=== PATIENT | male | born 1980 | race Two or more races ===

== ENCOUNTER 2020-07-15 18:21 | Inpatient (IN) | payer OTHER ==
[~2020-07-15] VITALS: Ht 175.3 cm; Wt 107.4 kg
--- NOTE | 2020-07-15 18:47 | NUR ---
PT AMBULATORY TO [facility] W/ STEADY GAIT.
--- NOTE | 2020-07-15 18:51 | NUR ---
RECEIVED REPORT FROM CLIFTON ELLINGTON. TRANSFER OF CARE.
[2020-07-15] MEDS ORDERED: SODIUM CHLORIDE FLUSH 10ML SYR IVF ONE (19:00)
[2020-07-15] MEDS ORDERED: SODIUM CHLORIDE 0.9% 1,000ML IVBOLUS ONE ×2 (19:00→20:30)
--- NOTE | 2020-07-15 19:11 | NUR ---
PT HAS CO CHILLS, FEVER, ABDOMINAL PAIN, DIARRHEA FOR 2 DAYS. TROUBLE URINATING PT IN BED AND IS ANXIOUS. BREATHING A LITTLE FAST. Bed in lowest, rails engaged, call light on lap. Vital Signs within normal limits. WCTM.
[2020-07-15 19:27] LABS: MEAN CORPUSCULAR HEMOGLOBIN 32.8 pg (27.5-34.5); MEAN CORPUSCULAR HGB CONC 35.4 g/dL (33.2-36.2); MEAN PLATELET VOLUME 8.9 fL (7.4-10.4); PLATELET COUNT 249 x10^3/uL (130-400); RED BLOOD COUNT 4.99 x10^6/uL (4.38-5.82); RED CELL DISTRIBUTION WIDTH 12.5 % (9.4-14.8)
[2020-07-15 19:34] LABS: ALANINE AMINOTRANSFERASE 78 U/L (12-78); ALBUMIN 4.1 g/dL (3.4-5.0); ANION GAP 11 mmol/L (5-15); CALCIUM 10.1 mg/dL (8.5-10.1); CHLORIDE 95 mmol/L (98-107); CREATININE 1.88 mg/dL (0.7-1.3)
[2020-07-15] MEDS ORDERED: ONDANSETRON 2MG/ML, 2ML ONE (19:36)
[2020-07-15 19:37] LABS: ALKALINE PHOSPHATASE 46 U/L (45-117); BILIRUBIN,TOTAL 0.9 mg/dL (0.2-1.0); TOTAL PROTEIN 9.7 g/dL (6.4-8.2)
[2020-07-15] MEDS ORDERED: MORPHINE SULFATE 4 MG/ML, 1ML ONE ×2 (19:37→22:01)
[2020-07-15] MEDS: MORPHINE SULFATE 4 MG/ML, 1ML IVPush PRN ×2 (19:40→22:02)
[2020-07-15] MEDS ORDERED: ACETAMINOPHEN 500 MG TABLET ONE (19:44)
[2020-07-15] MEDS ORDERED: ONDANSETRON 2MG/ML, 2ML IVPush ONE (20:00)
[2020-07-15] MEDS ORDERED: ACETAMINOPHEN 500 MG TABLET PO ONE (20:00)
--- NOTE | 2020-07-15 20:13 | NUR ---
PT RESTING IN BED. REPORTS FEELING A LOT BETTER. WENT TO BATHROOM WITH STEADY GAIT. WAS ABLE TO OBTAIN A URINE AND STOOL SAMPLE. ATTACHED TO MONITORS. VSS. BED IN NLOW POSITION. CALL LIGHT WITHIN REACH. AT BEDSIDE. WCTM
[2020-07-15 20:24] LABS: MICROSCOPIC INDICATED
--- NOTE | 2020-07-15 20:25 | NUR ---
PT OFF UNIT IN IMAGING.
--- NOTE | 2020-07-15 20:55 | NUR ---
Patient is restiNG IN bed. Bed in lowest, rails engaged, call light on lap. Vital Signs within normal limits. WCTM. PT STATES HE FEELS WARM AND IS SWEATING CURRENTLY RECEIVING FLUIDS.
[2020-07-15 21:11] LABS: CLOSTRIDIUM DIFFICILE ANTIGEN NEGATIVE; CLOSTRIDIUM DIFFICILE TOXIN NEGATIVE (Negative)
[2020-07-15] MEDS ORDERED: POTASSIUM CHLORIDE 20 MEQ TAB.ER.PRT ONE (21:54)
[2020-07-15] MEDS ORDERED: CHOLESTEROL (21:57)
[2020-07-15] MEDS ORDERED: ANTACID (21:57)
--- NOTE | 2020-07-15 21:57 | NUR ---
PT TAKES TWO PILLS. ONE FOR CHOLESTEROL AND ONE FOR GERD. STATES GERD PILL IS PURPLE, AND CHOLESTEROL MAY BE LIPITOR.
[2020-07-15] MEDS ORDERED: POTASSIUM CHLORIDE 20 MEQ TAB.ER.PRT PO ONE (22:00)
--- NOTE | 2020-07-15 22:05 | NUR ---
Patient is resting comfortably in bed. Bed in lowest, rails engaged, call light on lap. Vital Signs within normal limits. WCTM. TOLERATING MEDICATION WELL. HOSPITALIST AT BEDSIDE AWAITING TO GO UP TO FLOOR. NO ADDITIONAL NEEDS OR QUESTIONS AT THIS TIME.
--- NOTE | 2020-07-15 22:24 | NUR ---
CLARISSA. PRASAD [phone]
[2020-07-15] MEDS ORDERED: morphine SULFATE 10 MG/ML, 1ML IVPush PRN (22:30)
[2020-07-15] MEDS ORDERED: ONDANSETRON 2MG/ML, 2ML IVPush PRN (22:30)
[2020-07-15] MEDS ORDERED: ACETAMINOPHEN 325 MG TABLET PO PRN (22:30)
[2020-07-15 22:59] VITALS: BP 104/65
[2020-07-16] MEDS ORDERED: MAGNESIUM SULFATE PMX 2GM/50ML 50 ML IV ONE
[2020-07-16] MEDS: HEPARIN 5,000 UNITS/ML, 1ML SQ SCH ×4 (00:01→23:39)
[2020-07-16] MEDS: NS + 20MEQ KCL 1,000 ML IV SCH ×3 (01:08→21:26)
[2020-07-16 02:54] VITALS: BP 116/72
[2020-07-16 05:11] LABS: MEAN CORPUSCULAR HGB CONC 35.3 g/dL (33.2-36.2); MEAN PLATELET VOLUME 8.8 fL (7.4-10.4); PLATELET COUNT 227 x10^3/uL (130-400); RED BLOOD COUNT 4.67 x10^6/uL (4.38-5.82); RED CELL DISTRIBUTION WIDTH 12.3 % (9.4-14.8)
[2020-07-16 05:18] LABS: ANION GAP 8 mmol/L (5-15); CHLORIDE 95 mmol/L (98-107); CREATININE 1.41 mg/dL (0.7-1.3)
[2020-07-16 06:08] LABS: MD YES
[2020-07-16 06:11] LABS: BAND#(MANUAL) 3.08 x10^3/uL; BANDS%(MANUAL) 55 % (0-7); LYMPH#(MANUAL) 1.12 x10^3/uL (1-3.4); LYMPHS% (MANUAL) 20 % (22-44); METAMYELOCYTES# (MANUAL) 0.28 x10^3/uL (0-0); METAMYELOCYTES% (MANUAL) 5 % (0-1); MONOS#(MANUAL) 0.39 x10^3/uL (0.3-2.7); MONOS% (MANUAL) 7 % (2-9); MYELOCYTES# (MANUAL) 0.06 x10^3/uL (0-0); MYELOCYTES% (MANUAL) 1 % (0-0); SEG#(MANUAL) 0.67 x10^3/uL (1.8-6.8); SEGS% (MANUAL) 12 % (42-75)
[2020-07-16 06:15] LABS: <PLATELET ESTIMATE> ADEQUATE; <PLT MORPHOLOGY> NORMAL PLT MORPH
[2020-07-16 06:16] LABS: POLYCHROMASIA 1+
[2020-07-16 08:19] LABS: CRYPTOSPORIDIUM ANTIGEN Negative (Negative)
[2020-07-16 08:55] VITALS: BP 121/79
[2020-07-16] MEDS: LOPERAMIDE 2 MG CAPSULE PO PRN ×2 (12:25→21:26)
[2020-07-16 12:56] VITALS: BP 104/55
[2020-07-16 14:45] LABS: MD YES
[2020-07-16 14:47] LABS: BAND#(MANUAL) 3.04 x10^3/uL; BANDS%(MANUAL) 49 % (0-7); LYMPHS% (MANUAL) 8 % (22-44); METAMYELOCYTES# (MANUAL) 0.74 x10^3/uL (0-0); METAMYELOCYTES% (MANUAL) 12 % (0-1); MONOS#(MANUAL) 0.37 x10^3/uL (0.3-2.7); MONOS% (MANUAL) 6 % (2-9); MYELOCYTES# (MANUAL) 0.12 x10^3/uL (0-0); MYELOCYTES% (MANUAL) 2 % (0-0); SEG#(MANUAL) 1.43 x10^3/uL (1.8-6.8); SEGS% (MANUAL) 23 % (42-75)
[2020-07-16 14:48] LABS: <PLATELET ESTIMATE> ADEQUATE; <PLT MORPHOLOGY> NORMAL PLT MORPH; ANISOCYTOSIS 1+; POLYCHROMASIA 1+
[2020-07-16] MEDS: DICYCLOMINE 20 MG TABLET PO PRN (19:13)
[2020-07-16 20:37] VITALS: BP 108/69
[2020-07-16] MEDS: CEFTRIAXONE 1,000 MG in DEXTROSE 5% 50 ML IVPB SCH ×2 (23:43)
[2020-07-17 00:45] VITALS: BP 101/61
[2020-07-17] MEDS: DICYCLOMINE 20 MG TABLET PO PRN (04:03)
[2020-07-17] MEDS: LOPERAMIDE 2 MG CAPSULE PO PRN (04:03)
[2020-07-17] MEDS: NS + 20MEQ KCL 1,000 ML IV SCH (05:24)
[2020-07-17 07:08] VITALS: BP 106/64
[2020-07-17 07:54] LABS: MEAN CORPUSCULAR HEMOGLOBIN 31.9 pg (27.5-34.5); MEAN CORPUSCULAR HGB CONC 34.1 g/dL (33.2-36.2); PLATELET COUNT 225 x10^3/uL (130-400); RED CELL DISTRIBUTION WIDTH 12.3 % (9.4-14.8)
[2020-07-17 07:59] LABS: ALANINE AMINOTRANSFERASE 56 U/L (12-78); ANION GAP 5 mmol/L (5-15); CALCIUM 8.7 mg/dL (8.5-10.1); CHLORIDE 106 mmol/L (98-107); CREATININE 0.94 mg/dL (0.7-1.3)
[2020-07-17 08:01] LABS: ALKALINE PHOSPHATASE 39 U/L (45-117); BILIRUBIN,TOTAL 0.3 mg/dL (0.2-1.0); TOTAL PROTEIN 7.8 g/dL (6.4-8.2)
[2020-07-17 08:24] LABS: MD YES
[2020-07-17 08:37] LABS: BAND#(MANUAL) 1.35 x10^3/uL; BANDS%(MANUAL) 27 % (0-7); BASOS#(MANUAL) 0.05 x10^3/uL (0-0.1); BASOS% (MANUAL) 1 % (0-1); LYMPH#(MANUAL) 1.45 x10^3/uL (1-3.4); LYMPHS% (MANUAL) 29 % (22-44); METAMYELOCYTES# (MANUAL) 0.05 x10^3/uL (0-0); METAMYELOCYTES% (MANUAL) 1 % (0-1); MONOS% (MANUAL) 6 % (2-9); MYELOCYTES# (MANUAL) 0.05 x10^3/uL (0-0); MYELOCYTES% (MANUAL) 1 % (0-0); REACTIVE LYMPHS # (MANUAL) 0.05 x10^3/uL (0-0); REACTIVE LYMPHS % (MANUAL) 1 % (0-0); SEGS% (MANUAL) 34 % (42-75)
[2020-07-17 08:42] LABS: ANISOCYTOSIS 1+; POLYCHROMASIA 1+
[2020-07-17 08:43] LABS: <PLATELET ESTIMATE> ADEQUATE; <PLT MORPHOLOGY> NORMAL PLT MORPH
[2020-07-17] MEDS: HEPARIN 5,000 UNITS/ML, 1ML SQ SCH (09:15)
[2020-07-17] MEDS ORDERED: DICY10CA3 PO (11:35)
[2020-07-17] MEDS ORDERED: POTASSIUM CHLORIDE 20 MEQ TAB.ER.PRT PO ONE (12:00)
[2020-07-17 12:05] VITALS: BP 110/71
== END 2020-07-17 14:39 | disposition home or self-care (01) | DRG 689 ==
LOC: ED 18:51 → EDIP 22:08 → 4EST 22:58
PROVIDERS: ADMIT Internal Medicine; ATTEND Hospitalist
DX: N39.0 Urinary tract infection, site not specified (principal); N17.0 Acute kidney failure with tubular necrosis; R65.11 Systemic inflammatory response syndrome (SIRS) of non-infectious origin with acute organ dysfunction; E87.1 Hypo-osmolality and hyponatremia; E78.5 Hyperlipidemia, unspecified; E86.0 Dehydration; E87.6 Hypokalemia; F10.10 Alcohol abuse, uncomplicated; K21.9 Gastro-esophageal reflux disease without esophagitis
CPT/HCPCS: 36415; 71045; 74176; 80048; 80053; 81001; 83605; 83690; 83735; 84145; 85025; 87040; 87046; 87077; 87086; 87324; 87328; 87329; 87491; 87591; 89055; 96374; 99285; G0378; J0696; J1644; J2405; J3480; J2270; J3475; J7030